=== PATIENT | female | born 1995 | race Caucasian/White ===

== ENCOUNTER 2019-01-23 13:00 | Emergency (ER) | payer OTHER ==
[~2019-01-23] VITALS: Ht 170.2 cm; Wt 72.6 kg
[2019-01-23 13:04] VITALS: BP 135/92
== END 2019-01-23 13:48 | disposition home or self-care (01) ==
LOC: ER 13:00
DX: M54.2 Cervicalgia (principal); M54.9 Dorsalgia, unspecified; V49.59XA Passenger injured in collision with other motor vehicles in traffic accident, initial encounter; Y92.89 Other specified places as the place of occurrence of the external cause; Y93.89 Activity, other specified; Y99.8 Other external cause status

== ENCOUNTER → 2019-03-09 | Outpatient (CLI) | payer OTHER | LOC: RAD 09:57 | DX: M54.2 Cervicalgia (principal); M54.5 Low back pain; V89.2XXA Person injured in unspecified motor-vehicle accident, traffic, initial encounter ==